=== PATIENT | male | born 1950 ===

== ENCOUNTER 2017-07-07 07:44 | Outpatient (CLI) | payer MEDICARE, OTHER ==
--- NOTE | 2017-07-07 10:29 | XRay Report ---
LEFT SHOULDER: Left shoulder pain. Routine views demonstrate normal bony and soft tissue structures with normal joint alignment of the shoulder. IMPRESSION: Normal study.
== END 2017-07-07 07:45 | disposition home or self-care (01) ==
LOC: SPVIMAG 07:44
PROVIDERS: ATTEND Orthopaedic Surgery
DX: M25.512 Pain in left shoulder (principal)